=== PATIENT | male | born 1975 | race Caucasian/White ===

== ENCOUNTER → 2019-12-27 | Outpatient (CLI) | payer OTHER, SELFPAY ==
[2019-12-27 16:42] LABS: International Normalized Ratio 1.3; Prothrombin Time (Protime)PT. 15.7 SECONDS (11.7-14.9)
== END | disposition home or self-care (01) ==
PROVIDERS: Referring Provider Family Medicine; Visit Provider Family Medicine
DX: Z95.2 Presence of prosthetic heart valve (principal); Z79.01 Long term (current) use of anticoagulants
CPT/HCPCS: 85610

== ENCOUNTER 2025-02-12 07:14 | Emergency (ER) | payer OTHER, SELFPAY ==
[2025-02-12 07:15] VITALS: BP 155/76; PULSE 65; RESP 18; TEMP 35.9; O2SAT 96; BMI 39.1
--- NOTE | 2025-02-12 07:25 | EDS_ITS ---
HPI HPI - GI History of Present Illness Chief Complaint: Abd Pain Informant: patient Abdominal Pain/Flank Pain Onset: Days Context: Gradual Onset Timing: Continuous Location: LUQ, RLQ and Right Flank Current Severity: Moderate Maximum Severity: Moderate Worsened by: Nothing Relieved by: Nothing Nausea/Vomiting/Emesis GI Symptom: Positive for Nausea and Vomiting Severity: Mild Diarrhea/Melena/Hematochezia GI Symptom: Negative for Diarrhea, Melena or Hematochezia Associated Symptoms Associated Symptoms: Negative for Dysuria, Frequency or Hematuria Narrative Narrative: 49-year-old male history of mechanical heart valve placed in 2019 for which she is on warfarin. Prior history of a kidney stone. Denies any prior abdominal surgery. States Wednesday evening he started having right flank right lower quadrant abdominal pain. Associate with nausea vomiting. Nothing particular makes the pain better or worse. Denies any fever. Denies any dysuria or hematuria. Prior similar symptoms: No Recent Illness/Hospitalization: No PFSH PFSH Home Medications ?Medication ?Instructions ?Recorded ?Last Taken ?Type amlodipine 5 mg tablet 5 mg PO BID 02/12/25 5 History amoxicillin 875 mg-potassium 1 tab PO BID 10 days #20 tabs 02/12/25 Unknown Rx clavulanate 125 mg tablet aspirin 81 mg chewable tablet 1 tab PO DAILY 02/12/25 02/12/25 History atorvastatin 40 mg tablet 40 mg PO DAILY 02/12/2501/24 History chlorthalidone 25 mg tablet 25 mg PO DAILY 02/12/25 History metoprolol succinate 100 mg 100 mg PO BID 02/12/25 History tablet,extended release 24 hr valsartan 320 mg tablet 320 mg PO DAILY 02/12/25 History warfarin 5 mg tablet 5 mg PO .COMPLEX 02/12/25 History Allergy/AdvReac Type Severity Reaction Status Date / Time nut - unspecified Allergy Anaphylaxis Verified 02/12/25 07:15 lisinopril AdvReac Mild cough Verified 02/12/25 07:15 Social History Smoking Status: Never smoker ROS ROS ED ROS Narrative Right flank and lower quadrant abdominal pain. Nausea and vomiting. Constitutional Constitutional ED: Denies chills or fever(s) ENT ENT ED: Denies ear pain Cardiovascular Cardiovascular: Denies chest pain Respiratory/Chest Respiratory/Chest: Denies cough or dyspnea Gastrointestinal Gastrointestinal: Reports abdominal pain, nausea and vomiting; Denies diarrhea Genitourinary Genitourinary ED: Denies dysuria or hematuria Musculoskeletal Musculoskeletal: Denies arthralgias Integumentary Denies abscess Neurologic Neurologic: Denies headache(s) Psychiatric Psychiatric: Denies anxiety Endocrine Endocrinology: Denies polydipsia Hematologic/Lymphatic Hematologic/Lymphatic: Denies easy bleeding Allergic/Immunologic Allergic/Immunologic ED: Denies mouth swelling, tongue swelling or urticaria EXAM Physical Exam Narrative Exam Narrative: 49-year-old male sitting upright in bed. Companied by his . Vital signs ar e stable afebrile. He does not look septic or toxic. His skin is clammy however. H EENT exam pupils round reactive light. Extra motions are intact. Moist mucous membranes. Neck nontender no lymphadenopathy. Lungs clear to auscultation bilaterally. Heart regular rhythm rate about 65. Click of the mechanical valve. Chest wall and ribs nontender. Abdomen soft mild very low right lower and lateral tenderness. No hernia or mass. No signs of trauma. No distention. Right upper quadrant and left-sided abdomen are nontender. No peritoneal signs. No pulsatile mass. Moving all 4 extremities. Nontender no edema. Normal strength. Back nontender. Neurologically is awake alert. Answering questions following commands. Normal strength. Const Vital Signs: 02/12/25 07:15 02/12/25 09:07 Temperature 96.6 F L 98.1 F Temperature Source Temporal Pulse Rate 65 74 Respiratory Rate 18 19 H Blood Pressure 155/76 H 144/76 H Blood Pressure Mean 102 98 Pulse Ox 96 98 Oxygen Delivery Method Room Air Positive well nourished and well developed; Negative for cachectic, contractures or unkempt General Appearance ED: well developed and NAD; Negative for unkempt, cachectic, contractures or pallor Nutritional Appearance: Negative for cachectic HEENT Reports moist mucous membranes normocephalic and atraumatic Eyes PERRL and EOMs intact bilaterally Neck no lymphadenopathy, supple and no JVD Resp normal respiratory effort and clear to auscultation bilaterally Cardio regular rate, regular rhythm, S1 normal heart sound, S2 normal heart sound and no murmurs GI non-distended and no masses; Negative for non-tender GI Narrative: Mild tenderness right lower quadrant and right lateral abdomen. No distention. No obstruction. No hernia or mass. Auscultation: normoactive bowel sounds Palpation: soft and tender; Negative for guarding, rigid, hepatomegaly, splenomegaly, hernia, mass, pulsatile mass or rebound tenderness present Back/Spine no CVA tenderness General Back: Negative for CVA tenderness Cervical Spine: Negative for cervical spine tenderness Thoracic Spine / Upper Back: Negative for thoracic spinal tenderness Lumbar Spine / Lower Back: Negative for lumbar spinal tenderness Coccyx: Negative for other Extremity full ROM General Extremety ED: Negative for edema or other findings General Extremity: Negative for edema or other findings Neuro CN's II-XII intact bilaterally, moves all extremities, no sensory deficits noted and gait normal Sensorium / Orientation: alert, oriented to person, oriented to place and oriented to time; Negative for orientation impaired or confused Motor Exam: strength 5/5 throughout Psych mental status grossly normal Appearance: Negative for unkempt Skin no wounds General Skin Exam: Negative for jaundice or pallor Lesions: no lesions Rashes: no rashes Trauma: Negative for abrasion MDM MDM MDM Narrative Medical decision making narrative: 49-year-old male with right lower quadrant abdominal pain. I think his pneumonitis is more likely kidney stone definitely though could be appendicitis he just did not seem tender. There is no obvious hernia or obstruction. CAT scan or labs are being obtained. Urinalysis. He currently does not want anything for pain or nausea. Repeat exam patient doing well. I described to him his test results. And his CAT scan. I spoke to Dr. Brooke of GI. Patient may start Augmentin twice daily for 10 days. Outpatient follow-up as needed. Return if worse. Patient is comfortable with the plan. He did not waiting for pain. He will use Motrin and Tylenol at home. History & Record Review Discussion w/independent historian: Patient and Family Additional record(s) reviewed:: Prior inpatient record, Prior outpatient record, Prior ED visit and Prior labs Lab Data Attestation: I reviewed the patient's lab results. Lab results narrative: CBC shows white count elevated 16.6. H&H 15 and 44. Platelets 275. PT/INR of 24.8 and 2.2. Electrolytes show potassium of 3.1. Gap 11. BUN and creatinine of 16 and 1. Glucose 190. Urinalysis shows occult blood. No nitrates. 0 red cells. 0 white cells. 1+ bacteria. Labs: Laboratory Results - last 24 hr 02/12/25 02/12/25 07:28 07:50 WBC 16.6 H RBC 5.13 Hgb 15.9 Hct 44.8 MCV 87.3 MCH 31.0 MCHC 35.5 RDW Std Deviation 41.0 RDW Coeff of [place] 12.9 Plt Count 275 MPV 10.7 Immature Gran % (Auto) 0.500 Neut % (Auto) 82.3 H Lymph % (Auto) 10.0 L [place] % (Auto) 5.5 Eos % (Auto) 1.3 Baso % (Auto) 0.4 Absolute Neuts (auto) 13.7 H Absolute Lymphs (auto) 1.67 Nucleated RBC % 0 PT 24.8 H INR 2.2 Sodium 133 Potassium 3.1 L Chloride 97 L Carbon Dioxide 25.0 Anion Gap 11 BUN 16 Creatinine 1.05 Estim Creat Clear Calc 108.94 Est GFR (MDRD) Non-Af 87 BUN/Creatinine Ratio 15.2 Glucose 190 H Calcium 9.7 Urine Color Yellow Urine Clarity Clear Urine pH 6.5 Ur Specific [place] 1.015 Urine Protein 30 H Urine Glucose (UA) Normal Urine Ketones Negative Urine Occult Blood 25 H Urine Nitrite Negative Urine Bilirubin Negative Urine Urobilinogen 1 H Ur Leukocyte Esterase Negative Urine RBC 0-5 SEEN Urine WBC 0-5 SEEN Ur Squamous Epith Cells 0-5 SEEN Urine Bacteria 1+ Urine Mucus 1+ Radiography Diagnostic Testing: Clinical Impression(s) from Imaging Studies Abdomen/Pelvis CT 02/12/25 07:40 IMPRESSION: 1. Moderate diffuse thickening of the ascending colon, probably uncomplicated colitis without perforation or pneumatosis coli. 2. Mild changes of central mesenteric panniculitis. 3. Fat containing right inguinal hernia without incarceration. 4. Mild bilateral basilar atelectatic pulmonary changes. 5. Mild diffuse thickening of the stomach suggestive of gastritis. 6. Scattered right renal simple cysts are noted with the largest measuring 1.2 cm. No follow-up is needed. 7. Diffuse spondylosis. Reading Location: [place] [id number] Discharge Plan Triage Chief Complaint: Abd Pain ED Provider: Himanshu Grace Dx/Rx/DC Orders Clinical Impression: Abdominal pain, History of heart valve replacement with mechanical valve, Chronic anticoagulation, Vomiting Instructions: ED Understanding Colitis Prescriptions: New amoxicillin-pot clavulanate 875-125 mg tablet 1 tab PO BID 10 Days Qty: 20 0RF No Action atorvastatin 40 mg tablet 40 mg PO DAILY metoprolol succinate 100 mg tablet extended release 24 hr 100 mg PO BID chlorthalidone 25 mg tablet 25 mg PO DAILY amlodipine 5 mg tablet 5 mg PO BID warfarin 5 mg tablet 5 mg PO .COMPLEX Rx Instructions: 5 mg orally 5mg ,, 10mg sat, wed, , ; valsartan 320 mg tablet 320 mg PO DAILY aspirin 81 mg tablet,chewable 1 tab PO DAILY Primary Care Provider: Armando Sadler NP Referrals: Armando Sadler DIRECTOR OF SEARCH ENGINE MARKETING, DIRECTOR OF SEARCH ENGINE MARKETING-C [Primary Care Provider] - 1 Week if not improving Activity Restrictions/Additional Instructions: CAT scan is consistent with inflammation of the right side of your colon. This is called colitis. I spoke to the GI doctor, Hu Cottrell start you on antibiotic Augmentin twice a day for 10 days. Follow-up with your primary care provider to ensure you are improving. Motrin and Tylenol for pain. Print Language: Bulgarian Disposition Disposition: Home, Self Care
[2025-02-12 07:38] LABS: Absolute Lymphocyte Count 1.67 X10^3/uL (0.83-4.51); Absolute Neutrophil Count 13.7 X10^3/uL (2.0-7.7); Basophil# 0.06 X10^3/uL; Basophil% 0.4 % (0-1); Eosinophil# 0.21 X10^3/uL; Eosinophils% 1.3 % (0-5); Hematocrit 44.8 % (40-54); Hemoglobin 15.9 g/dL (13.0-16.5); Lymphocyte # 1.67 X10^3/ul (0.83-4.51); Mean Corp Hgb Conc 35.5 g/dL (32-36); Mean Corpuscular Volume 87.3 fL (80-94); Mean Platelet Vol. 10.7 fl (6.2-12.0); Monocyte# 0.92 X10^3/uL; Monocyte% 5.5 % (0-10); NRBC Flagged by Analyzer 0 % (0-5); Neutrophil # 13.69 X10^3/uL (2.7-7.7); Neutrophil % 82.3 % (47-70); Platelet Count 275 K/mm3 (150-450); RBC Distribution Width CV 12.9 % (11.6-14.6); Red Blood Count 5.13 M/mm3 (4.6-6.2); White Blood Count 16.6 K/mm3 (4.4-11.0)
--- NOTE | 2025-02-12 07:40 | CT_ITS ---
PROCEDURE: ABDOMEN/PELVIS W IV CONT ONLY 02/12/2025 REASON FOR EXAM: RLQ ABD PAIN TECHNIQUE: Abdomen and pelvis CT with intravenous contrast. Coronal and Sagittal reconstruction series were provided. PATIENT PREPARATION: Per protocol ORAL CONTRAST TYPE: None. CONTRAST: Isovue-350 VOLUME: 100 mL One or more dose reduction techniques were used (e.g., Automated exposure control, adjustment of the mA and/or kV according to patient size, use of iterative reconstruction technique. RADIATION DOSE SUMMARY: CTDlvol: 23 mGy DLP: 1360 mGycm COMPARISON: None. FINDINGS: Moderate diffuse thickening of the ascending colon, probably uncomplicated colitis without perforation or pneumatosis coli. Mild changes of central mesenteric panniculitis. Fat containing right inguinal hernia without incarceration. Mild bilateral basilar atelectatic pulmonary changes. Mild diffuse thickening of the stomach suggestive of gastritis. Scattered right renal simple cysts are noted with the largest measuring 1.2 cm. No follow-up is needed. Diffuse spondylosis. Normal liver. Normal gallbladder and extrahepatic biliary system. Normal spleen. Normal pancreas. Normal bilateral adrenal glands. Normal size of the right kidney. There is no right renal mass. There are no right renal calculi. There is no right hydronephrosis. Normal visualized right ureter. Normal size of the left kidney. There is no left renal mass. There are no left renal calculi. There is no left hydronephrosis. Normal visualized left ureter. Normal small intestine. The appendix is visualized and appears normal. There is no demonstrated peritoneal fluid. Normal abdominal aorta. Normal inferior vena cava. Normal retroperitoneum. Normal urinary bladder. There is no pelvic mass lesion or lymphadenopathy. There is no pelvic fluid. CT/Abdomen/Pelvis W IV Cont ONLY IMPRESSION: 1. Moderate diffuse thickening of the ascending colon, probably uncomplicated c olitis without perforation or pneumatosis coli. 2. Mild changes of central mesenteric panniculitis. 3. Fat containing right inguinal hernia without incarceration. 4. Mild bilateral basilar atelectatic pulmonary changes. 5. Mild diffuse thickening of the stomach suggestive of gastritis. 6. Scattered right renal simple cysts are noted with the largest measuring 1.2 cm. No follow-up is needed. 7. Diffuse spondylosis. Reading [facility] [address]
[2025-02-12 07:44] LABS: International Normalized Ratio 2.2; Prothrombin Time (Protime)PT. 24.8 SECONDS (11.7-14.9)
[2025-02-12 08:06] LABS: Color, Urine Yellow (Yellow); Glucose, Dipstick Normal (Normal); Ketone-Dipstick Negative (Negative); Leukocyte Esterase-Dipstick Negative /ul (Negative); Nitrite-Dipstick Negative (Negative); Occult Blood-Urine 25 /ul (Negative); Protein-Dipstick 30 mg/dl (Negative); Specific Gravity, Urine 1.015 (1.002-1.030); Urine Bilirubin Dipstick Negative (Negative); Urine Clarity Clear (Clear); Urine Urobilinogen 1 mg/dl (Normal); Urine pH 6.5 (5.0 - 8.0)
[2025-02-12 08:10] LABS: Anion Gap 11 (5-15); BUN 16 mg/dL (4-19); BUN/Creat Ratio 15.2 RATIO (10-20); Calcium,Total 9.7 mg/dL (7.6-11.0); Chloride 97 mmol/L (98-108); Creatinine, Serum 1.05 mg/dL (0.70-1.20); EST Glomerular Filtration Rate 87 (>60); Estimated Creatinine Clearance 108.94 ml/min (50-250); Glucose 190 mg/dL (70-99); Potassium 3.1 mmol/L (3.3-5.1); Sodium Level 133 mmol/L (133-145)
[2025-02-12 08:14] LABS: Bacteria 1+ /hpf (None Seen); Mucous, Urine 1+ /hpf (<or=2+); Red Blood Cells-Urine 0-5 SEEN /hpf (0-5); Squamous Epithelial Cells - UA 0-5 SEEN /hpf (0-5); White Blood Cells 0-5 SEEN /hpf (0-5)
[2025-02-12 09:07] VITALS: BP 144/76; PULSE 74; RESP 19; TEMP 36.7; O2SAT 98
[2025-02-12] MEDS: Amox/Clavulanate 875 MG Tablet PO (09:16)
== END 2025-02-12 09:16 | disposition home or self-care (01) ==
PROVIDERS: Emergency Provider Emergency Medicine; PCP Nurse Practitioner Primary Care; Visit Provider Emergency Medicine
DX: R10.31 Right lower quadrant pain (principal); R11.2 Nausea with vomiting, unspecified; Z79.01 Long term (current) use of anticoagulants; Z95.2 Presence of prosthetic heart valve
CPT/HCPCS: 74177; 80048; 81001; 85025; 85610; 99282; Q9967; A4216